=== PATIENT | female | born 1995 | race Caucasian/White ===

== ENCOUNTER 2020-07-01 23:10 | Emergency (ER) | payer MEDICAID, SELFPAY ==
[2020-07-01 23:11] VITALS: BP 154/101; PULSE 86; RESP 20; TEMP 36.3; O2SAT 98; BMI 49.6
--- NOTE | 2020-07-01 23:24 | EKG12_ITS ---
Test Reason : DYSRHYTHMIA Blood Pressure : / mmHG Vent. Rate : 090 BPM Atrial Rate : 090 BPM P-R Int : 144 ms QRS Dur : 092 ms QT Int : 368 ms P-R-T Axes : 052 061 056 degrees QTc Int : 450 ms Normal sinus rhythm Normal ECG Confirmed by KAIT NICOLE, RADHA ([id number]), supervising editor news reel CHANDAN URIBE ([id number]) on 07/03/2020 11:31:07 AM Referred By: ALPHONSE Confirmed By:RADHA CARBALLO MD
--- NOTE | 2020-07-01 23:25 | ED.VIS.GEN ---
History of Present Illness Chief Complaint: Palpitations Informant: Patient Onset: Today Context: Sudden Onset Timing: Continuous Current Severity: Moderate Maximum Severity: Moderate Narrative: Patient is a 24-year-old female who is otherwise healthy that presents to the emergency department with palpitations and near syncope. Patient states she was in her normal state of health. She states she began to feel like her heart was racing. She states she then began to feel like it was missing beats and she felt like she was going to pass out. She became nauseated and had tunnel vision. She never lost consciousness. She states since then, she just feels like her heart has been racing. She denies cough. She denies shortness of breath. She states she does feel mildly anxious. She states this happened about 4 months ago and she actually did pass out. She states she presented to the emergency department and was told that she was dehydrated. She did not have to follow-up with cardiology. Prior similar symptoms: Yes Recent Illness/Hospitalization: No Past Medical History - Allergies and Home Meds Allergies/Adverse Reactions: Allergies No Known Allergies Allergy (Verified 07/01/20 23:11) Primary Care Physician: Arsen Lyman MD [STAFF PHYSICIAN] - Prior records reviewed: Yes Past Medical History: None Surgical History: noncontributory Review of Systems General: Denies: Chills, Fever, Sweats Eyes: Denies: Visual changes - bilaterally, Diplopia ENT: Denies: Rhinorrhea, Sore throat Cardiovascular: Reports: Chest pain, Palpitations, Heart racing Respiratory: Denies: Dyspnea, Cough, Dyspnea on exertion Gastrointestinal: Denies: Abdominal pain, Nausea, Vomiting, Diarrhea, Melena, Hematochezia Genitourinary: Denies: Dysuria, Hematuria, Frequency Musculoskeletal: Denies: Back pain, Extremity Pain Skin: Denies: Rash, Wounds Neurological: Denies: Headache, Weakness, Numbness Physical Exam Vital Signs/Narrative: Vital Signs Temp Pulse Resp BP Pulse Ox 07/01/20 23:11 97.4 F L 86 20 H 154/101 H 98 Inital Vital Signs reviewed: Yes General: Well nourished, Well developed, No Acute Distress Head: Normocephalic, Atraumatic Eyes: Perrl, EOMI ENT: Moist mucous membranes, No rhinorrhea Neck: Supple, Nontender Cardiovascular: Regular rate, Regular rhythm, No murmurs Respiratory: No distress, CTA bilaterally, Chest nontender Abdomen: Soft, Nontender, Nondistended, Normal bowel sounds Back: Nontender, Normal Inspection Extremities: Nontender, No edema Skin: Normal color, No rash Neurological: Alert, Oriented x3, Cranial nerves II-XII grossly intact, Normal Strength, Normal Sensation Psychological: Normal affect, Normal Mood Diagnostic/Tx/Re-eval Clinical Impression(s) from Imaging Studies Chest X-Ray 07/01/20 23:50 IMPRESSION: Normal x-ray examination of the chest. Electronically Signed: Billie Orantes MD at 0:20 EDT Tel , Service support , Abnormal Lab Results 07/01/20 07/01/20 22:35 22:35 WBC 11.6 H RBC 4.58 Hgb 13.7 Hct 42.4 MCV 92.6 MCH 29.9 MCHC 32.3 RDW Std Deviation 44.0 H RDW Coeff of Halie 13.0 Plt Count 532 H MPV 9.1 Immature Gran % (Auto) 0.400 Neut % (Auto) 56.1 Lymph % (Auto) 31.0 [place] % (Auto) 8.1 Eos % (Auto) 3.5 Baso % (Auto) 0.9 Absolute Neuts (auto) 6.5 Absolute Lymphs (auto) 3.58 Nucleated RBC % 0 Sodium 139 Potassium 3.5 Chloride 111 H Carbon Dioxide 23.0 Anion Gap 5 BUN 13 Creatinine 0.90 Estim Creat Clear Calc 81.80 Est GFR (MDRD) Af Amer 97 Est GFR (MDRD) Non-Af 80 BUN/Creatinine Ratio 14.4 Glucose 102 Calcium 8.5 Magnesium 2.0 Troponin I < 0.015 - Rhythm Strip Rhythm Strip: Sinus Rhythm Rate: 80 Ectopy: None - EKG Initial EKG Interpretation: Sinus Rhythm, No Acute Injury Pattern Prior: No Prior - Medical Decision Making The patient presents after vasovagal near syncopal episode. EKG was obtained on arrival. Was sinus rhythm without acute ischemic change. Patient was kept on a monitor. There is no dysrhythmia. Metabolic work-up was pursued and was unremarkable. Chest x-ray shows no evidence of enlarged cardiac silhouette, volume overload, or other dangerous process. Patient was observed for greater than an hour with no further symptoms. This does seem consistent with vasovagal near syncope. The patient had rapid change in position prior to the symptoms. However, she has had this twice within the past year I do feel that outpatient cardiology follow-up will be appropriate. The patient is comfortable with this plan of care. Impression 1. Vasovagal near syncope ED Disposition - Plan for ED Patient: Instructions: ED Near Syncope Vasovagal Referrals: Arsen Lyman MD [STAFF PHYSICIAN] -
[2020-07-01 23:48] VITALS: O2SAT 98
[2020-07-01 23:48] LABS: Absolute Lymphocyte Count 3.58 X10^3/uL (0.83-4.51); Absolute Neutrophil Count 6.5 X10^3/uL (2.0-7.7); Basophil% 0.9 % (0-1); Eosinophils% 3.5 % (0-5); Hematocrit 42.4 % (37-47); Hemoglobin 13.7 g/dL (12.0-15.0); Lymphocyte # 3.58 X10^3/ul (4.0); Mean Corp Hgb Conc 32.3 g/dL (32-36); Mean Corpuscular Hgb 29.9 pg (27.0-32.0); Mean Corpuscular Volume 92.6 fL (81-99); Mean Platelet Vol. 9.1 fl (6.2-12.0); Monocyte# 0.94 X10^3/uL; Monocyte% 8.1 % (0-10); NRBC Flagged by Analyzer 0 % (0-5); Neutrophil # 6.49 X10^3/uL (2.7-7.7); Neutrophil % 56.1 % (47-70); Platelet Count 532 K/mm3 (150-450); Red Blood Count 4.58 M/mm3 (4.2-5.4); White Blood Count 11.6 K/mm3 (4.4-11.0)
--- NOTE | 2020-07-01 23:50 | RAD_ITS ---
STUDY: X-RAY CHEST REASON FOR EXAM: Female, 24 years old. 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 NOW FEELING SOB AND ANXIOUS. TECHNIQUE: Single AP portable view of the chest. COMPARISON: None. FINDINGS: The lungs are clear and expanded. There is no demonstrated pleural abnormality. Normal size heart. Normal mediastinum and lalo. Normal visualized pulmonary arteries. Normal visualized aortic arch and descending thoracic aorta. Normal visualized thoracic spine. Normal visualized ribs, clavicles, and shoulders. There is no demonstrated abnormality of the visualized soft tissue structures of the upper abdomen. RAD/Chest 1 View (Portable) IMPRESSION: Normal x-ray examination of the chest. Electronically Signed: Billie Orantes MD at 0:20 EDT Tel , Service support ,
[2020-07-02 00:01] LABS: Anion Gap 5 (5-15); BUN 13 mg/dL (7-18); BUN/Creat Ratio 14.4 RATIO (10-20); Calcium,Total 8.5 mg/dL (8.5-10.1); Chloride 111 mmol/L (98-107); EST Glomerular Filtration Rate 80 mL/min (>60); Est Glom Filt Rate - Afr Amer 97 mL/min (>60); Glucose 102 mg/dL (74-106); Potassium 3.5 mmol/L (3.5-5.1); Sodium Level 139 mmol/L (136-145)
[2020-07-02 00:36] VITALS: BP 122/74; PULSE 84; RESP 16; O2SAT 98
== END 2020-07-02 00:37 | disposition home or self-care (01) ==
LOC: ED 07-02 00:01
PROVIDERS: Emergency Provider Emergency Medicine
DX: R55 Syncope and collapse (principal)
CPT/HCPCS: 71045; 80048; 83735; 84484; 85025; 93005; 99284

== ENCOUNTER 2020-11-08 16:39 | Emergency (ER) | payer SELFPAY ==
[2020-11-08 16:40] VITALS: BP 157/94; PULSE 92; RESP 17; TEMP 36.1; O2SAT 97; BMI 51.0
--- NOTE | 2020-11-08 17:02 | EKG12_ITS ---
Test Reason : SOB Blood Pressure : / mmHG Vent. Rate : 084 BPM Atrial Rate : 084 BPM P-R Int : 144 ms QRS Dur : 088 ms QT Int : 378 ms P-R-T Axes : 059 043 055 degrees QTc Int : 446 ms Normal sinus rhythm with sinus arrhythmia Low Voltage QRS (Limb Leads) Confirmed by TAE NICOLE, BRET ([id number]), editor department KANG PETTIT ([id number]) on 11/09/2020 11:20:56 AM Referred By: AZALIA Confirmed By:BRET STRONG MD
--- NOTE | 2020-11-08 17:05 | ED.VISSUMM ---
- ER Visit Summary Date of Service: 11/08/20 Chief Complaint: Shortness of breath History of Present Illness: The patient is a 25 F who presents with shortness of breath that became worse today. Patient states she has been having some intermittent shortness of breath over the past few days. Patient states this has been constant for the past 2 hours today. Patient states her breathing feels heavy. Patient also admits to some heaviness in her chest and tightness in her left arm. Patient states she also had some lightheadedness earlier today. Patient states it is worse with anxiety. Patient states nothing seems to help. Patient denies any cough. Patient denies any sick contacts. Patient denies any fevers or chills. Patient denies any loss of taste or smell. Patient denies any rhinorrhea or sore throat. Patient denies any PE or cardiac risk factors. Physical Examination: Vital signs are stable. Patient is afebrile. Patient is in no acute distress. Oral mucosa is pink and moist. Neck is supple. Trachea is midline. There is no JVD. Heart was regular rate and rhythm. Lungs are clear and equal bilaterally. Abdomen is soft. Bowel sounds are normal. There is no tenderness. There is no rebound or guarding noted. Cranial nerves II through XII are intact. There are no focal motor or sensory deficits noted. Extremities are intact. There is no calf tenderness or edema. Test Results: EKG was obtained. On my interpretation, there is normal sinus rhythm with a rate of 84. There are no acute ST or T wave changes. This is unchanged compared to previous EKG dated 07/01/2020. CBC and comprehensive metabolic profile were obtained were within normal limits. Troponin was normal. Lactate was normal. Portable 1 view chest x-ray was obtained. On my interpretation, lung walker are clear. There is normal cardiac silhouette. Bony thorax is normal. There is no acute process noted. Radiologist also interpreted the x-ray and agrees. COVID-19 rapid antigen was obtained and was negative. Emergency Department Course and Treatment: Patient was given albuterol inhaler here. Patient felt better on reevaluation. Patient was instructed to continue her inhaler as needed. Patient was instructed to follow-up with her primary care physician in 5 to 7 days. Patient understood and was agreeable with the plan. All questions were answered. Disposition: Discharge home Impression: Dyspnea This note was generated with [employer], a Division of [employer] dictation software. It may contain incorrect words, spelling, and punctuation that were not noted in review of the chart prior to signing ED Disposition - Plan for ED Patient: Disposition: Home or Assisted Living Diagnosis: Dyspnea Instructions: ED Dyspnea Referrals: So Camara MD [STAFF PHYSICIAN] - 5-7 Days
[2020-11-08 17:28] VITALS: BP 138/87; PULSE 95; RESP 19; O2SAT 96
[2020-11-08 17:46] LABS: Absolute Lymphocyte Count 2.01 X10^3/uL (0.83-4.51); Absolute Neutrophil Count 6.7 X10^3/uL (2.0-7.7); Basophil# 0.08 X10^3/uL; Basophil% 0.8 % (0-1); Eosinophil# 0.28 X10^3/uL; Eosinophils% 2.8 % (0-5); Hematocrit 39.8 % (37-47); Hemoglobin 13.4 g/dL (12.0-15.0); Lymphocyte # 2.01 X10^3/ul (4.0); Lymphocyte % 20.4 % (19-41); Mean Corp Hgb Conc 33.7 g/dL (32-36); Mean Corpuscular Volume 89.2 fL (81-99); Mean Platelet Vol. 8.9 fl (6.2-12.0); Monocyte# 0.74 X10^3/uL; Monocyte% 7.5 % (0-10); NRBC Flagged by Analyzer 0 % (0-5); Neutrophil % 68.1 % (47-70); Platelet Count 558 K/mm3 (150-450); RBC Distribution Width CV 12.7 % (11.6-14.6); RBC Distribution Width SD 41.5 fl (35.1-43.9); Red Blood Count 4.46 M/mm3 (4.2-5.4); White Blood Count 9.9 K/mm3 (4.4-11.0)
--- NOTE | 2020-11-08 18:04 | RAD_ITS ---
STUDY: X-RAY CHEST REASON FOR EXAM: Female, 25 years old. INTERMITTENT SOB STARTING SEVERAL DAYS AGO, REPORTS WORSE WITH ANXIETY. PT ALSO REPORTS HER LEFT ARM BECOMING TIGHT. TECHNIQUE: Frontal view COMPARISON: 07/01/2020 FINDINGS: The lungs are clear and expanded. There is no demonstrated pleural abnormality. Normal size heart. Normal mediastinum and lalo. Normal visualized pulmonary arteries. Normal visualized aortic arch and descending thoracic aorta. Normal visualized thoracic spine. Normal visualized ribs, clavicles, and shoulders. There is no demonstrated abnormality of the visualized soft tissue structures of the upper abdomen. RAD/Chest 1 View (Portable) IMPRESSION: Normal x-ray examination of the chest. Electronically Signed: Pavel Cabezas DO at 18:28 EST Tel [phone], Service support ,
[2020-11-08 18:08] LABS: ALB/GLOB Ratio 0.9 RATIO (0.9-2.4); AST(SGOT) 14 U/L (15-37); Alanine Aminotransfer ALT/SGPT 32 U/L (13-56); Albumin, Serum 3.5 g/dL (3.2-5.0); Alkaline Phosphatase 59 U/L (45-117); Anion Gap 6 (5-15); BUN 15 mg/dL (7-18); BUN/Creat Ratio 16.2 RATIO (10-20); Calcium,Total 8.9 mg/dL (8.5-10.1); Chloride 108 mmol/L (98-107); Creatinine, Serum 0.93 mg/dL (0.55-1.02); EST Glomerular Filtration Rate 77 mL/min (>60); Est Glom Filt Rate - Afr Amer 93 mL/min (>60); Estimated Creatinine Clearance 81.76 ml/min; Globulin 3.9 g/dL (2.2-4.2); Glucose 105 mg/dL (74-106); Potassium 3.8 mmol/L (3.5-5.1); Protein, Total 7.4 g/dL (6.4-8.2); Sodium Level 140 mmol/L (136-145)
[2020-11-08 18:54] LABS: Lactic Acid 1.4 mmol/L (0.4-1.9)
[2020-11-08 19:00] VITALS: BP 138/83; PULSE 85; RESP 13; O2SAT 98
[2020-11-08 19:34] VITALS: BP 142/88; PULSE 94; RESP 16; O2SAT 99
== END 2020-11-08 19:34 | disposition home or self-care (01) ==
PROVIDERS: Emergency Provider Emergency Medicine
DX: R06.00 Dyspnea, unspecified (principal)
CPT/HCPCS: 71045; 80053; 83605; 84484; 85025; 87426; 93005; 99284; A4216

== ENCOUNTER 2022-08-22 10:58 | Emergency (ER) | payer SELFPAY ==
[2022-08-22 10:59] VITALS: BP 146/107; PULSE 90; RESP 18; TEMP 36.6; O2SAT 97; BMI 54.1
[2022-08-22 12:34] VITALS: RESP 16
--- NOTE | 2022-08-22 12:52 | EDS_ITS ---
HPI History of Present Illness Chief Complaint: Nosebleed Informant: patient Narrative Narrative: Presents with right-sided epistaxis over the last 24 hours 5 different episodes. No anticoagulants. Currently cold last few days that he is up. Denies digital manipulation. She states she would remove a clot and would rebleed. No history of similar. Diagnosis Home COVID 4 days ago for the second time. Denies any significant symptoms. No dyspnea. No headache. Has not seen ENT in the past. She states she was changing her baby's diaper when it occurred initially. Prior similar symptoms: No PFSH PFSH Home Medications NK 11/08/20 [History Last Taken Unknown] Allergy/AdvReac Type Severity Reaction Status Date / Time No Known Allergies Allergy Verified 08/22/22 11:01 Social History Smoking Status: Never smoker ROS ROS ED Constitutional Constitutional ED: Denies chills, fever(s) or sweats Eyes Eyes: Denies change in vision ENT ENT ED: Reports other Details: Right nasal epistaxis ; Denies dysphagia or sore throat Cardiovascular Cardiovascular: Denies chest pain, leg edema, palpitations or racing heartbeat Respiratory/Chest Respiratory/Chest: Denies cough, dyspnea or dyspnea on exertion Gastrointestinal Gastrointestinal: Denies abdominal pain, diarrhea, nausea or vomiting Genitourinary Genitourinary ED: Denies dysuria, hematuria or urinary frequency Musculoskeletal Musculoskeletal: Denies back pain, extremity pain or neck pain Integumentary Denies rash or wounds Neurologic Neurologic: Denies headache(s), paresthesias or weakness EXAM Physical Exam Const Vital Signs: 08/22/22 10:59 08/22/22 12:34 Temperature 98 F Temperature Source Temporal Pulse Rate 90 Respiratory Rate 18 16 Blood Pressure 146/107 H Blood Pressure Mean 120 Pulse Ox 97 Oxygen Delivery Method Room Air Positive well nourished and well developed General Appearance ED: well developed and NAD HEENT Reports moist mucous membranes HEENT Narrative: Dried blood was noted in right nare the removed and noted mild recurrent ble eding from a small nasal polyp anterior aspect of the septum. No ulcerations. No posterior pharyngeal active bleeding. normocephalic and atraumatic Eyes PERRL, EOMs intact bilaterally and conjunctivae normal General Eye ED: Yes normal appearance of both eyes Neck no lymphadenopathy and supple General: Negative for tenderness Chest Wall Chest: Negative for tenderness Resp normal respiratory effort and normal air movement Effort and Inspection: symmetric chest movement; Negative for respiratory distress Cardio regular rate, regular rhythm and no murmurs Peripheral Pulses: pulses 2+ throughout GI normal to inspection, nondistended, normoactive bowel sounds and non-tender Palpation: Negative for guarding or rebound tenderness present Back/Spine no CVA tenderness and no thoracic nor lumbar tenderness Extremity normal to inspection General Extremety ED: Negative for edema or tenderness General Extremity: Negative for edema Neuro oriented x3 and no sensory deficits noted Sensorium / Orientation: awake and alert Skin no rashes or lesions noted and no wounds MDM MDM MDM Narrative Medical decision making narrative: Patient recurrent bleeding polyp in the nasal septum. Controlled with pressure, however with her concerns for rebleeding discussed the nasal packing for which she agreed. 3.5 cm Merocel packing was placed with no complications. Bleeding controlled. Due to the nasal polyp, she is given follow with ENT to be evaluated as an outpatient. COVID positive outpatient 4 days ago with no significant symptoms. Pulse ox 97% on room air. Return precautions. All questions were answered. Discharge Plan Triage Chief Complaint: Nosebleed ED Provider: Marek Blankenship Dx/Rx/DC Orders Clinical Impression: Right nasal polyps, Epistaxis, COVID-19 virus infection Instructions: Understanding Nasal Polyps, ED Epistaxis (Adult) Prescriptions: No Action NK Primary Care Provider: Care Physician,No Primary Referrals: Esteban Millan MD [Med Staff - Active Staff] - 3-5 Days Care Physician,No Primary [Primary Care Provider] - Activity Restrictions/Additional Instructions: Small right anterior septal nasal polyp noted that was bleeding. 3.5 cm Merocel packing placed. Follow-up with ENT in 3 days. Return if any worsening symptoms. Disposition Disposition: Home, Self Care Discharge Date/Time: 08/22/22 12:34
== END 2022-08-22 12:34 | disposition home or self-care (01) ==
PROVIDERS: Emergency Provider Emergency Medicine; Visit Provider Emergency Medicine
DX: U07.1 COVID-19 (principal); R04.0 Epistaxis; J33.9 Nasal polyp, unspecified
CPT/HCPCS: 30901; 99282

== ENCOUNTER → 2023-03-03 | Outpatient (CLI) | payer BC, SELFPAY | END | disposition home or self-care (01) | LOC: MFPLAB 15:49 | PROVIDERS: PCP Family Medicine; Visit Provider Family Medicine | DX: R63.5 Abnormal weight gain (principal); L68.9 Hypertrichosis, unspecified; N92.6 Irregular menstruation, unspecified ==

== ENCOUNTER → 2023-03-04 | Outpatient (CLI) | payer BC, SELFPAY ==
[2023-03-04 11:02] LABS: Absolute Lymphocyte Count 2.15 X10^3/uL (0.83-4.51); Absolute Neutrophil Count 5.9 X10^3/uL (2.0-7.7); Basophil# 0.07 X10^3/uL; Basophil% 0.8 % (0-1); Eosinophil# 0.24 X10^3/uL; Eosinophils% 2.7 % (0-5); Hematocrit 43.4 % (37-47); Hemoglobin 14.2 g/dL (12.0-15.0); Lymphocyte # 2.15 X10^3/ul (0.83-4.51); Lymphocyte % 23.9 % (19-41); Mean Corp Hgb Conc 32.7 g/dL (32-36); Mean Corpuscular Hgb 29.3 pg (27.0-32.0); Mean Corpuscular Volume 89.5 fL (81-99); Mean Platelet Vol. 9.3 fl (6.2-12.0); Monocyte# 0.65 X10^3/uL; Monocyte% 7.2 % (0-10); NRBC Flagged by Analyzer 0 % (0-5); Neutrophil # 5.87 X10^3/uL (2.7-7.7); Neutrophil % 65.1 % (47-70); Platelet Count 550 K/mm3 (150-450); RBC Distribution Width CV 13.2 % (11.6-14.6); RBC Distribution Width SD 42.9 fl (35.1-43.9); Red Blood Count 4.85 M/mm3 (4.2-5.4)
[2023-03-04 11:16] LABS: Hemoglobin A1c 5.3 % (3.8-5.6)
[2023-03-04 11:20] LABS: ALB/GLOB Ratio 0.8 RATIO (0.9-2.4); AST(SGOT) 16 U/L (15-37); Alanine Aminotransfer ALT/SGPT 40 U/L (13-56); Albumin, Serum 3.5 g/dL (3.2-5.0); Alkaline Phosphatase 57 U/L (45-117); Anion Gap 6 (5-15); BUN 17 mg/dL (7-18); BUN/Creat Ratio 18.8 RATIO (10-20); Calcium,Total 9.2 mg/dL (8.5-10.1); Chloride 105 mmol/L (98-107); Cholesterol 156 mg/dL (200); EST Glomerular Filtration Rate 78 mL/min (>60); Est Glom Filt Rate - Afr Amer 94 mL/min (>60); Globulin 4.3 g/dL (2.2-4.2); Glucose 78 mg/dL (74-106); High Density Lipoprotein 51 mg/dL; Potassium 3.9 mmol/L (3.5-5.1); Prolactin 13.6 ng/mL; Protein, Total 7.8 g/dL (6.4-8.2); Sodium Level 138 mmol/L (136-145); Thyroid Stim Hormone (TSH) 4.55 uIU/mL (0.358-3.74); Triglycerides 87 mg/dL; Very Low Density Lipoprotein 17 mg/dL (5-40)
== END | disposition home or self-care (01) ==
LOC: MFPLAB 08:04
PROVIDERS: PCP Family Medicine; Visit Provider Family Medicine
DX: R63.5 Abnormal weight gain (principal); N92.6 Irregular menstruation, unspecified; L68.9 Hypertrichosis, unspecified
CPT/HCPCS: 36415; 80053; 80061; 82157; 82627; 83036; 84146; 84403; 84443; 85025; 82626

== ENCOUNTER 2023-12-31 14:09 | Emergency (ER) | payer SELFPAY ==
[2023-12-31 14:10] VITALS: BP 175/110; PULSE 91; RESP 18; TEMP 36.4; O2SAT 96; BMI 59.2
--- NOTE | 2023-12-31 14:43 | EDS_ITS ---
HPI <GUILLERMINA Castorena - Last Filed: 12/31/23 15:56> History of Present Illness Chief Complaint: Abd Pain Narrative Narrative: 28-year-old female states 4 hours ago she developed abdominal pain and has had 5 episodes of loose nonbloody stool. She has nausea but no vomiting. No fever or chills. Normal urination. She states this morning she had eggs and toast. She is on thyroid medication. Denies medication changes or travel or new foods. No abdominal surgical history. PFSH <GUILLERMINA Castorena - Last Filed: 12/31/23 15:56> [facility] Medical History (Updated 12/31/23 @ 16:[address] Addison Hills MD) Abdominal wall strain Home Medications dicyclomine 20 mg tablet 20 mg PO BID 5 days #10 tabs 12/31/23 [Rx Last Taken Unknown] loperamide 2 mg capsule 2 mg PO Q6H PRN loose stool 5 days #20 caps 12/31/23 [Rx Last Taken Unknown] Allergy/AdvReac Type Severity Reaction Status Date / Time No Known Allergies Allergy Verified 12/31/23 14:10 Social History Smoking Status: Never smoker ROS <GUILLERMINA Castorena - Last Filed: 12/31/23 15:56> ROS ED ROS Narrative Constitutional: Negative for fever, chills, malaise. CVS: Negative for chest pain. Respiratory: Negative for shortness of breath. GI: Positive for abdominal pain, nausea, diarrhea. Negative for constipation, melena, hematochezia. : Negative for dysuria, hematuria or frequency. EXAM <GUILLERMINA Castorena - Last Filed: 12/31/23 15:56> Physical Exam Narrative Exam Narrative: CONST: Patient sitting in no acute distress. EYES: Normal inspection. NECK: Normal inspection. RESP: No respiratory distress, CTAB. CVS: Regular rate and rhythm, no murmur, no gallop. ABD: Soft and nontender, no guarding or rebound, nondistended, no hepatosplenomegaly. Normal bowel sounds x 4. SKIN: Color normal, no rash, warm, dry, intact. EXTREMITIES: Normal appearance, no pedal edema. NEURO: Oriented x4. PSYCH: Normal affect. Const Vital Signs: 12/31/23 14:10 12/31/23 15:59 Temperature 97.5 F L 98.4 F Temperature Source Temporal Pulse Rate 91 80 Respiratory Rate 18 16 Blood Pressure 175/110 H 147/70 H Blood Pressure Mean 131 95 Pulse Ox 96 100 Oxygen Delivery Method Room Air <Dr. Addison Hills MD - Last Filed: 12/31/23 16:08> Physical Exam Const Vital Signs: 12/31/23 14:10 12/31/23 15:59 Temperature 97.5 F L 98.4 F Temperature Source Temporal Pulse Rate 91 80 Respiratory Rate 18 16 Blood Pressure 175/110 H 147/70 H Blood Pressure Mean 131 95 Pulse Ox 96 100 Oxygen Delivery Method Room Air MDM <GUILLERMINA Castorena - Last Filed: 12/31/23 15:56> [facility] MDM Narrative Medical decision making narrative: Patient has acute abdominal cramping pain and diarrhea over the last 4 hours. She was worried this is her gallbladder or appendix. She has no fever or chills. Pain comes in waves and is associated with having a loose bowel movement. No melena or hematochezia. Her abdomen is soft, nontender, nond istended with normal bowel sounds. I discussed based on her history and exam I am not concerned that this is her gallbladder or appendix, rather more likely viral diarrhea and colonic pain. After treatment with Bentyl, Zofran and Imodium she feels improved. I discussed following a bland diet and prescribed Bentyl and Imodium for home. I discussed symptoms that would warrant return for reevaluation she was comfortable with this plan and discharged in stable condition. I have personally performed a face to face assessment of the patient and have reviewed the ALEXANDER Note. I performed a substantive portion of the visit including all aspects of the following. My pacheco findings include: History is remarkable for acute sharp pain that was in the periumbilical area radiating upwards. She states the pain is generalized. She has nausea without vomiting. Has had for 5 episodes of diarrhea. Not any blood or mucus. No fever, chills night sweats. For lunch she had 1 egg and an apple. She denies urologic symptoms. She has irregular menses. She states she can go months without having a menstrual cycle. She denies respiratory or cardiac symptoms. Exam is blood pressure is elevated. She has had elevated blood pressures on prior ER visits. Patient's BMI is 59. Lungs are clear to auscultation. Breath sounds are symmetric. Heart is regular. Rate is normal. There is no murmur, gallop or rub. Patient has tenderness in the epigastric area. There is no tympany to percussion. Bowel sounds are slightly increased. There is no guarding or peritoneal findings. There is no CVA tenderness. Medical Decision Making with several episodes diarrhea will treat her pain with Bentyl and Zofran for her nausea. Will also prescribe Imodium for her diarrhea. Other additions or changes: [None] <Dr. Addison Hills MD - Last Filed: 12/31/23 16:08> [facility] MDM Narrative Medical decision making narrative: Patient has acute abdominal cramping pain and diarrhea over the last 4 hours. She was worried this is her gallbladder or appendix. She has no fever or chills. Pain comes in waves and is associated with having a loose bowel movement. No melena or hematochezia. Her abdomen is soft, nontender, nondistended with normal bowel sounds. I discussed based on her history and exam I am not concerned that this is her gallbladder or appendix, rather more likely viral diarrhea and colonic pain. After treatment with Bentyl, Zofran and Imodium she feels improved. I discussed following a bland diet and prescribed Bentyl and Imodium for home. I discussed symptoms that would warrant return for reevaluation she was comfortable with this plan and discharged in stable c ondition. I have personally performed a face to face assessment of the patient and have reviewed the ALEXANDER Note. I performed a substantive portion of the visit including all aspects of the following. My pacheco findings include: History is remarkable for acute sharp pain that was in the periumbilical area radiating upwards. She states the pain is generalized. She has nausea without vomiting. Has had for 5 episodes of diarrhea. Not any blood or mucus. No fever, chills night sweats. For lunch she had 1 egg and an apple. She denies urologic symptoms. She has irregular menses. She states she can go months without having a menstrual cycle. She denies respiratory or cardiac symptoms. Exam is blood pressure is elevated. She has had elevated blood pressures on prior ER visits. Patient's BMI is 59. Lungs are clear to auscultation. Breath sounds are symmetric. Heart is regular. Rate is normal. There is no murmur, gallop or rub. Patient has tenderness in the epigastric area. There is no tympany to percussion. Bowel sounds are slightly increased. There is no guarding or peritoneal findings. There is no CVA tenderness. Medical Decision Making with several episodes diarrhea will treat her pain with Bentyl and Zofran for her nausea. Will also prescribe Imodium for her diarrhea. Other additions or changes: Patient was reassessed at approximately 1555. She reported marked improvement. Plan is to discharge home with appropriate home- going instructions Discharge Plan Triage Chief Complaint: Abd Pain ED Midlevel Provider: Lea Morillo ED Provider: Addison Hills Dx/Rx/DC Orders Clinical Impression: Acute diarrhea, Abdominal pain, Nausea alone, Body mass index 50.0-59.9, adult Instructions: ED Diarrhea, Unknown Cause Prescriptions: New dicyclomine 20 mg tablet 20 mg PO BID 5 Days Qty: 10 0RF loperamide 2 mg capsule 2 mg PO Q6H PRN (Reason: loose stool) 5 Days Qty: 20 0RF Primary Care Provider: So Camara Referrals: So Camara MD [Primary Care Provider] - Activity Restrictions/Additional Instructions: Drink clear fluids and eat bland foods such banana, rice, applesauce and toast etc Disposition Disposition: Home, Self Care Discharge Date/Time: 12/31/23 16:00
[2023-12-31] MEDS: Ondansetron ODT 4 MG Tablet PO (14:46)
[2023-12-31] MEDS: Dicyclomine 10 MG Capsule 20 MG PO (14:46)
[2023-12-31] MEDS: Loperamide 2 MG Capsule 4 MG PO (15:09)
[2023-12-31 15:59] VITALS: BP 147/70; PULSE 80; RESP 16; TEMP 36.9; O2SAT 100
== END 2023-12-31 16:00 | disposition home or self-care (01) ==
PROVIDERS: Emergency Provider Emergency Medicine; PCP Family Medicine; Visit Provider Emergency Medicine
DX: R19.7 Diarrhea, unspecified (principal); R10.9 Unspecified abdominal pain; R11.0 Nausea
CPT/HCPCS: 99283

== ENCOUNTER → 2024-03-08 | Outpatient (CLI) | payer OTHER, SELFPAY ==
[2024-03-08 09:51] LABS: Absolute Lymphocyte Count 2.25 X10^3/uL (0.83-4.51); Basophil# 0.07 X10^3/uL; Basophil% 0.8 % (0-1); Eosinophils% 2.2 % (0-5); Hematocrit 43.6 % (37-47); Lymphocyte # 2.25 X10^3/ul (0.83-4.51); Mean Corp Hgb Conc 32.1 g/dL (32-36); Mean Corpuscular Hgb 28.6 pg (27.0-32.0); Mean Corpuscular Volume 89.2 fL (81-99); Mean Platelet Vol. 9.2 fl (6.2-12.0); Monocyte# 0.43 X10^3/uL; Monocyte% 4.8 % (0-10); NRBC Flagged by Analyzer 0 % (0-5); Neutrophil # 5.99 X10^3/uL (2.7-7.7); Neutrophil % 66.6 % (47-70); Platelet Count 546 K/mm3 (150-450); RBC Distribution Width CV 13.4 % (11.6-14.6); RBC Distribution Width SD 43.7 fl (35.1-43.9); Red Blood Count 4.89 M/mm3 (4.2-5.4)
[2024-03-08 10:29] LABS: ALB/GLOB Ratio 0.9 RATIO (0.9-2.4); AST(SGOT) 17 U/L (15-37); Alanine Aminotransfer ALT/SGPT 36 U/L (13-56); Albumin, Serum 3.5 g/dL (3.2-5.0); Alkaline Phosphatase 65 U/L (45-117); Anion Gap 8 (5-15); BUN 17 mg/dL (7-18); Calcium,Total 8.7 mg/dL (8.5-10.1); Chloride 103 mmol/L (98-107); Creatinine, Serum 0.81 mg/dL (0.55-1.02); EST Glomerular Filtration Rate 88 mL/min (>60); Est Glom Filt Rate - Afr Amer 106 mL/min (>60); Globulin 4.1 g/dL (2.2-4.2); Glucose 156 mg/dL (74-106); Potassium 3.6 mmol/L (3.5-5.1); Protein, Total 7.6 g/dL (6.4-8.2); Sodium Level 137 mmol/L (136-145); T4 Total, Thyroxin 11.2 ug/dL (4.8-13.9); Thyroid Stim Hormone (TSH) 4.53 uIU/mL (0.358-3.74)
[2024-03-08 10:41] LABS: Hemoglobin A1c 5.2 % (3.8-5.6)
== END | disposition home or self-care (01) ==
LOC: MTLAB 07:01
PROVIDERS: PCP Family Medicine; Referring Provider Family Medicine; Visit Provider Family Medicine
DX: E03.9 Hypothyroidism, unspecified (principal); N92.6 Irregular menstruation, unspecified
CPT/HCPCS: 36415; 80053; 83036; 84436; 84443; 85025

== ENCOUNTER → 2024-05-12 | Outpatient (CLI) | payer OTHER, SELFPAY | END | disposition home or self-care (01) | PROVIDERS: PCP Family Medicine; Referring Provider Family Medicine; Visit Provider Family Medicine | DX: E03.9 Hypothyroidism, unspecified (principal) | CPT/HCPCS: 36415; 84443 ==

== ENCOUNTER 2024-05-24 11:49 | Emergency (ER) | payer OTHER, SELFPAY ==
[2024-05-24 11:50] VITALS: BP 179/91; PULSE 90; RESP 16; TEMP 36.8; O2SAT 94; BMI 61.4
--- NOTE | 2024-05-24 12:55 | US_ITS ---
INDICATION: ABDOMEN PAIN EXAMINATION: Ultrasound US Abdomen Limited (quadrant) TECHNIQUE: Jara scale and color doppler imaging was performed of the right upper quadrant. COMPARISON: No relevant prior comparison study available FINDINGS: LIVER: The liver is diffusely echogenic consistent with fatty infiltration. There is mild hepatomegaly. No focal hepatic lesion. There is no free fluid. GALLBLADDER AND BILIARY TREE: There are gallstones and sludge within the gallbladder; a client representative gallstone measures up to 1.8 cm. No gallbladder wall thickening or pericholecystic fluid is visualized. The proximal common bile duct measures 4.0 mm, which is within normal limits for the patient''s age. Songraphic Gordon''s sign: Negative. PANCREAS: No focal abnormality is demonstrated in the pancreas. No pancreatic ductal dilatation. RIGHT KIDNEY: The right kidney measures 14.4 cm in length and is within normal limits. US/Gallbladder IMPRESSION: Cholelithiasis and sludge within the gallbladder with no associated gallbladder wall thickening, pericholecystic fluid nor reported sonographic Gordon''s sign. Fatty infiltration of the liver associated with hepatomegaly. Electronically Signed: Nataly Delong MD at 14:38 EDT ,
--- NOTE | 2024-05-24 13:02 | ED.VIS.GI ---
HPI HPI - GI History of Present Illness Chief Complaint: Abd Pain Informant: patient Abdominal Pain/Flank Pain Context: Gradual Onset Timing: Intermittent Location: Epigastric Current Severity: Gone Nausea/Vomiting/Emesis GI Symptom: Positive for Nausea Severity: Mild Diarrhea/Melena/Hematochezia GI Symptom: Negative for Diarrhea, Melena or Hematochezia Associated Symptoms Associated Symptoms: Negative for Dysuria, Frequency, Hematuria or Urgency Narrative Narrative: 28-year-old female complaining of epigastric abdominal pain that woke her up Thursday night while she was asleep. Only lasted 15 seconds. She has had intermittent right upper quadrant abdominal pain after eating recently. Associated nausea. No vomiting or fever. No weight loss. No dysuria. No lower abdominal pain. She does have a history of hypothyroidism. Has never had any abdominal surgeries. Prior similar symptoms: Yes Recent Illness/Hospitalization: No PFSH PFSH Medical History Abdominal wall strain Home Medications ?Medication ?Instructions ?Recorded ?Last Taken ?Type dicyclomine 20 mg tablet 20 mg PO BID 5 days #10 tabs 12/31/23 Unknown Rx loperamide 2 mg capsule 2 mg PO Q6H PRN loose stool 5 days 12/31/23 Unknown Rx #20 caps Allergy/AdvReac Type Severity Reaction Status Date / Time No Known Allergies Allergy Verified 05/24/24 12:06 Social History Smoking Status: Never smoker ROS ROS ED ROS Narrative Intermittent abdominal pain. Postprandial pain and nausea. No fever. No vomiting. No diarrhea. Review of Systems ROS Unobtainable: Denies due to encephalopathy Constitutional Constitutional ED: Denies chills or fever(s) ENT ENT ED: Denies ear pain Cardiovascular Cardiovascular: Denies chest pain Respiratory/Chest Respiratory/Chest: Denies cough or dyspnea Gastrointestinal Gastrointestinal: Reports abdominal pain and nausea; Denies constipation, diarrhea, melena or vomiting Genitourinary Genitourinary ED: Denies dysuria or hematuria Musculoskeletal Musculoskeletal: Denies arthralgias or back pain Integumentary Denies abscess or Abrasions Neurologic Neurologic: Denies headache(s) Psychiatric Psychiatric: Denies anxiety or depression Endocrine Endocrinology: Denies polydipsia or polyphagia Hematologic/Lymphatic Hematologic/Lymphatic: Denies easy bleeding Allergic/Immunologic Allergic/Immunologic ED: Denies mouth swelling EXAM Physical Exam Narrative Exam Narrative: 28-year-old female no acute distress vital signs stable afebrile. Sitting upright in bed. Comfortable. Currently no pain. H EENT exam unremarkable. Neck nontender. Lungs clear to auscultation bilaterally. Heart regular rhythm no murmur. Abdomen soft, nontender nondistended normal bowel sounds without peritoneal signs. Currently no epigastric or right upper quadrant tenderness. No hernia or mass. No distention or obstruction. Moving all 4 extremities. Nontender no edema. She is awake and alert. Answer questions following commands. Const Vital Signs: 05/24/24 11:50 05/24/24 14:14 Temperature 98.2 F Temperature Source Temporal Pulse Rate 90 80 Respiratory Rate 16 16 Blood Pressure 179/91 H 149/90 H Blood Pressure Mean 120 109 Pulse Ox 94 97 Oxygen Delivery Method Room Air Room Air Positive well nourished and well developed; Negative for cachectic, contractures or unkempt General Appearance ED: well developed and NAD; Negative for unkempt, cachectic, contractures or pallor Nutritional Appearance: Negative for cachectic HEENT Reports moist mucous membranes normocephalic and atraumatic; Negative for trauma or tenderness Eyes PERRL and EOMs intact bilaterally General Eye ED: Negative for pale conjunctiva or scleral icterus Neck no lymphadenopathy, supple and no JVD General: Negative for tenderness Lymph Lymphatic: Negative for other Resp normal respiratory effort and clear to auscultation bilaterally Effort and Inspection: Negative for respiratory distress Auscultation: Negative for rales, rhonchi or wheezes Cardio regular rate, regular rhythm, S1 normal heart sound, S2 normal heart sound and no murmurs Rate: Negative for bradycardia or tachycardic Rhythm: Negative for abnormal rhythm GI non-tender, non-distended and no masses Inspection: Negative for abdominal distention Auscultation: normoactive bowel sounds Palpation: soft; Negative for tender, guarding, rigid, hernia, mass, pulsatile mass or rebound tenderness present Back/Spine no CVA tenderness General Back: Negative for CVA tenderness Cervical Spine: Negative for cervical spine tenderness Thoracic Spine / Upper Back: Negative for thoracic spinal tenderness Lumbar Spine / Lower Back: Negative for lumbar spinal tenderness Coccyx: Negative for other Extremity full ROM General Extremety ED: Negative for edema or tenderness General Extremity: Negative for edema Neuro CN's II-XII intact bilaterally and moves all extremities Sensorium / Orientation: alert, oriented to person, oriented to place and oriented to time Motor Exam: strength 5/5 throughout Psych mental status grossly normal and thought process normal Appearance: Negative for unkempt Attitude: No agitated Mood & Affect: Negative for depressed Skin no wounds General Skin Exam: Negative for jaundice or pallor Lesions: no lesions Rashes: no rashes Trauma: Negative for abrasion Nails: Negative for discolored MDM MDM MDM Narrative Medical decision making narrative: 28-year-old female has symptoms consistent with possible gallbladder disease with postprandial pain and nausea. Increased belching. Multiple family members with prior cholecystectomy. Ultrasound and labs are pending. Currently she is pain-free. Repeat exam patient is doing well at 2:36 PM. Abdomen benign. We have gone over her normal test results were awaiting the ultrasound results. Ultrasound gallstones and sludge. Should be discharged to home with outpatient follow-up. She is having no pain. History & Record Review Discussion w/independent historian: Patient Additional record(s) reviewed:: Prior inpatient record, Prior outpatient record and Prior ED visit Lab Data Attestation: I reviewed the patient's lab results. Lab results narrative: CBC normal. White count of 10. H&H 14 and 44. Platelets 550. Electrolytes show gap 5. BUN and creatinine are 19 and 0.76. Glucose 110. Liver enzymes normal. Lipase normal at 31. Serum negative. Ultrasound right upper quadrant shows gallstones and sludge. No cholecystitis. Near Pericholecystic fluid or wall thickening. Labs: Laboratory Results - last 24 hr 05/24/24 12:17 WBC 10.1 RBC 5.05 Hgb 14.3 Hct 44.0 MCV 87.1 MCH 28.3 MCHC 32.5 RDW Std Deviation 42.8 RDW Coeff of Halie 13.5 Plt Count 550 H MPV 9.1 Immature Gran % (Auto) 0.300 Neut % (Auto) 72.0 H Lymph % (Auto) 18.3 L Hancock % (Auto) 6.7 Eos % (Auto) 2.0 Baso % (Auto) 0.7 Absolute Neuts (auto) 7.3 Absolute Lymphs (auto) 1.84 Nucleated RBC % 0 Sodium 138 Potassium 4.0 Chloride 106 Carbon Dioxide 27.0 Anion Gap 5 BUN 19 H Creatinine 0.76 Estim Creat Clear Calc 172.87 Est GFR (MDRD) Af Amer 115 Est GFR (MDRD) Non-Af 95 BUN/Creatinine Ratio 25.1 H Glucose 110 H Calcium 9.2 Total Bilirubin 0.60 AST 21 ALT 38 Alkaline Phosphatase 48 Total Protein 8.0 Albumin 3.7 Globulin 4.3 H Albumin/Globulin Ratio 0.9 Lipase 31 Serum , Qual NEGATIVE Radiography Diagnostic Testing: Clinical Impression(s) from Imaging Studies Gallbladder Ultrasound 05/24/24 12:55 IMPRESSION: Cholelithiasis and sludge within the gallbladder with no associated gallbladder wall thickening, pericholecystic fluid nor reported sonographic Gordon''s sign. Fatty infiltration of the liver associated with hepatomegaly. Electronically Signed: Nataly Delong MD at 14:38 EDT , Discharge Plan Triage Chief Complaint: Abd Pain ED Provider: Tristian Renteria Dx/Rx/DC Orders Clinical Impression: Gallstones, Biliary colic Instructions: ED Gallstones with Biliary Colic Prescriptions: No Action dicyclomine 20 mg tablet 20 mg PO BID 5 Days Qty: 10 0RF loperamide 2 mg capsule 2 mg PO Q6H PRN (Reason: loose stool) 5 Days Qty: 20 0RF Primary Care Provider: So Camara Referrals: Jareth Martin MD [Med Staff - Active Staff] - As soon as possible So Camara MD [Primary Care Provider] - Activity Restrictions/Additional Instructions: Follow-up to general surgeon discussed with him about getting her gallbladder taken out. Your labs are normal. You have gallstones. Avoid fatty and greasy foods. Avoid chocolate and cabbage. Tylenol and/or Motrin for pain. If you get severe pain that you cannot control or intractable vomiting or fever you need to return. Sometimes the gallbladder can get infected or obstructed. Print Language: Armenian Disposition Disposition: Home, Self Care
[2024-05-24 13:03] LABS: Absolute Lymphocyte Count 1.84 X10^3/uL (0.83-4.51); Absolute Neutrophil Count 7.3 X10^3/uL (2.0-7.7); Basophil# 0.07 X10^3/uL; Basophil% 0.7 % (0-1); Hemoglobin 14.3 g/dL (12.0-15.0); Lymphocyte # 1.84 X10^3/ul (0.83-4.51); Lymphocyte % 18.3 % (19-41); Mean Corp Hgb Conc 32.5 g/dL (32-36); Mean Corpuscular Hgb 28.3 pg (27.0-32.0); Mean Corpuscular Volume 87.1 fL (81-99); Mean Platelet Vol. 9.1 fl (6.2-12.0); Monocyte# 0.67 X10^3/uL; Monocyte% 6.7 % (0-10); NRBC Flagged by Analyzer 0 % (0-5); Neutrophil # 7.26 X10^3/uL (2.7-7.7); Platelet Count 550 K/mm3 (150-450); RBC Distribution Width CV 13.5 % (11.6-14.6); RBC Distribution Width SD 42.8 fl (35.1-43.9); Red Blood Count 5.05 M/mm3 (4.2-5.4); White Blood Count 10.1 K/mm3 (4.4-11.0)
[2024-05-24 13:32] LABS: Internal QC Validated? YES +Cl - CLEAR BKGD; Pregnancy, Serum, hCG Quali. NEGATIVE Negative
[2024-05-24 13:38] LABS: ALB/GLOB Ratio 0.9 RATIO (0.9-2.4); AST(SGOT) 21 U/L (15-37); Alanine Aminotransfer ALT/SGPT 38 U/L (13-56); Albumin, Serum 3.7 g/dL (3.2-5.0); Alkaline Phosphatase 48 U/L (45-117); Anion Gap 5 (5-15); BUN 19 mg/dL (7-18); BUN/Creat Ratio 25.1 RATIO (10-20); Calcium,Total 9.2 mg/dL (8.5-10.1); Chloride 106 mmol/L (98-107); Creatinine, Serum 0.76 mg/dL (0.55-1.02); EST Glomerular Filtration Rate 95 mL/min (>60); Est Glom Filt Rate - Afr Amer 115 mL/min (>60); Estimated Creatinine Clearance 172.87 ml/min; Globulin 4.3 g/dL (2.2-4.2); Glucose 110 mg/dL (74-106); Lipase 31 U/L (13-75); Sodium Level 138 mmol/L (136-145)
[2024-05-24 14:14] VITALS: BP 149/90; PULSE 80; RESP 16; O2SAT 97
== END 2024-05-24 15:24 | disposition home or self-care (01) ==
PROVIDERS: Emergency Provider Emergency Medicine; PCP Family Medicine; Visit Provider Emergency Medicine
DX: K80.70 Calculus of gallbladder and bile duct without cholecystitis without obstruction (principal)
CPT/HCPCS: 76705; 80053; 83690; 84703; 85025; 99282; A4216

== ENCOUNTER 2024-06-13 10:07 | Day surgery (SDC) | payer SELFPAY ==
[2024-06-13] VITALS (14 sets, daily range): BP systolic 123–142; BP diastolic 68–97; PULSE 75–94; RESP 16–19; TEMP 36.1–36.9; O2SAT 9–97; BMI 58.6
--- NOTE | 2024-06-13 10:31 | EKG12_ITS ---
Test Reason : PRE-OP Blood Pressure : / mmHG Vent. Rate : 092 BPM Atrial Rate : 092 BPM P-R Int : 156 ms QRS Dur : 090 ms QT Int : 366 ms P-R-T Axes : 058 001 051 degrees QTc Int : 452 ms Normal sinus rhythm Possible Inferior infarct , age undetermined Abnormal ECG When compared with ECG of 08-NOV-2020 16:59, No significant change was found Confirmed by KAIT NICOLE, RADHA ([id number]), city editor OCTAVIA CLINTON ([id number]) on 06/14/2024 6:18:02 AM Referred By: Jareth Martin Confirmed By:RADHA CARBALLO MD
--- NOTE | 2024-06-13 10:50 | RAD_ITS ---
Exam: [place] Cholangiogram and/or Pancreatography OR Comparison: Ultrasound May 24, 2024 with stone filled gallbladder and 4 mm common duct. History: CHANDU W/ IOC Radiation: Fluoroscopic cumulative dose 15.68 mGy. Fluoroscopic time 2.6 seconds. IMAGES: Dynamic fluoroscopic images, 99 in number. FINDINGS: On the last images there is contrast throughout the common duct,, it is tapering distally. Mild contrast in the smooth pancreatic duct. There is contrast extravasation from the cystic duct at the end of the exam which may be due to injection pressure. RAD/Cholangiogram/ O R,Initial IMPRESSION: Dynamic intraprocedural images. No biliary obstruction with contrast injection. Periportal contrast extravasation near the cystic duct on later images. Electronically Signed: Denise Chen MD at 3:03 EDT ,
--- NOTE | 2024-06-13 10:51 | HP.PCM_ITS ---
History and Physical Date of Admission: 06/13/24 Intake Vital Signs 05/24/2411:50 06/02/2412:58 Height 5 ft 5 in 5 ft 6 in Weight: 368 lb BMI 59.3 BP 156/100 H Blood Pressure Location Rt brachial Position Sitting Respiration 18 Pulse 92 Pulse Source Monitor Temp 97.1 F L Temp Source Temporal Pulse Oximetry (%) 96 Oxygen Delivery Method room air Intake Visit Reasons: ER - GALLBLADDER Chief Complaint: Cholelithiasis/Gallbladder sludge Aviation Tactical Readiness Officer Required: No Is patient in pain?: No Allergies No Known Allergies Allergy (Verified 06/02/24 13:06) Medications ?Medication ?Instructions ?Recorded ?Confirmed ?Type loperamide 2 mg capsule 2 mg PO Q6H PRN loose stool 5 days 12/31/23 06/02/24 Rx #20 caps levothyroxine 125 mcg tablet 125 mcg PO DAILY 06/02/24 06/02/24 History (Synthroid) PFSH Medical History (Updated 06/02/24 @ 13:[address] Jareth Martin MD) Nausea Abdominal pain Thyroid disease Anxiety Obesity Gallbladder sludge Cholelithiasis Strain of right ankle and foot Abdominal wall strain Surgical History (Updated 06/02/24 @ 13:04 by Corina Marks) No history of previous surgery Family History Father Diabetes Hypertension High cholesterol Thyroid disorderGrandmother Diabetes High cholesterol Hypertension Thyroid disorderGrandfather Diabetes High cholesterol Hypertension Thyroid disorder Social History (Updated 06/02/24 @ 13:06 by Corina Marks) Smoking Status: Former smoker alcohol intake: never substance use type: does not use HPI HPI HPI: Patient is a 28-year-old female here with gallbladder disease. She was recently in the emergency room and found to have cholelithiasis. She says she has been having attacks for about a year. She said that she recently had an attack and she was in the emergency room and she is currently having pain when she eats. ROS General General: Yes weight change and fatigue; No appetite, colon cancer, breast cancer or weakness HEENT HEENT: No difficulty swallowing, eye injury, eye surgery, swollen glands or hoarseness Endo Endocrine: Yes thyroid disease; No diabetes mellitus, thyroid cancer, Hair loss, heat intolerance or cold intolerance Skin Skin: No rash or changing moles Breast Breast: No left breast lump, right breast lump, nipple discharge, breast pain, abnormal mammogram, abnormal US or breast enlargement Musc Musculoskeletal: No back problems, arthritis, rheumatoid arthritis, gout or joint pain Cardio Cardiovascular: No murmur, pacemaker, heart disease, atrial fibrillation, high blood pressure, heart attack, heart stent, palpitations, shortness of breat with exertion or chest pain Psych Psychiatric: Yes anxiety; No depression or hearing voices Resp Respiratory: No shortness of breath, No sleep apnea, No cough, No COPD, No asthma, No emphysema and No wheezing Gastro Gastrointestinal: Yes abdominal pain, Yes nausea or vomiting, No diarrhea, Yes constipation, No blood in stool, Yes acid reflux, No hemorrhoids, No ulcers, Yes gallbladder problem and No black,tarry stools Hilario Hematologic: No blood thinners, No blood disorders, No bleeding, No anemia and No blood clots Neuro Neurologic: No system reviewed and no additional complaints, except as documented, No as per HPI, No abnormal gait, No abnormal hearing, No abnormal movements, No abnormal speech, No behavioral changes, No burning sensations, No confusion, No convulsions, No disequilibrium, No dizziness, No localized weakness, No frequent falls, No headache(s), No lack of coordination, No loss of vision, No memory loss, No numbness, No other visual disturbances, No radicular pain, No restless legs, No sensory deficit, No syncope, No tingling, No tremor(s), No weakness and No other Exam Const General: cooperative Orientation: alert and oriented x3 HENMT Head: normal to inspection Neck Neck: normal visual inspection and full ROM Chest Chest palpation & inspection: normal inspection of the chest Resp Effort & Inspection: normal respiratory effort Auscultation: clear to auscultation bilaterally Cardio Rate: regular rate Rhythm: regular rhythm GI Inspection: non-distended Palpation: soft and nontender Skin General: no rashes or lesions noted Neuro General: patient alert and patient oriented x3 Extrem General: full ROM Psych Appearance: grossly normal Mental Status: mental status grossly normal Assessment and Plan Assessment and Plan (1) Cholelithiasis: Status: Acute Qualifiers: Cholelithiasis location: gallbladder Cholecystitis presence: with cholecystitis Cholecystitis acuity: chronic Biliary obstruction: without biliary obstruction Qualified Code(s): K80.10 - Calculus of gallbladder with chronic cholecystitis without obstruction Plan: The patient has cholelithiasis and likely has chronic cholecystitis. I discussed laparoscopic cholecystectomy with her. I discussed the procedure in detail with the patient. I discussed the risks, benefits, and alternatives of the procedure. I discussed the risks including but not limited to bleeding, infection, injury to surrounding organs such as the liver, bile duct, bowels. I did discuss the possibility of having to convert to an open procedure as well as the possibility that if any injuries occurred this may necessitate further surgery at a tertiary care center. Jareth Martin MD Pager: [facility] [address] [place] [address], [address] [place] [address] Office: I have examined the patient and the H&P has been reviewed. There are no clinical changes since date of exam.
--- NOTE | 2024-06-13 10:57 | PRE.ANES_ITS ---
ASA Classification* ASA Classification ASA Classification: 2 Assessment & Plan Anesthesia* Anesthesia Assessment Anesthesia Assessment: Discussed sedation and/or anesthesia options, risks, benefits, and alternatives with patient/parents/legal guardian/POA. Questions invited. The patient/parents/legal guardian/POA seems to understand and agrees to proceed with anesthesia plan. Reviewed the physical assessment, medical history, allergy history and patient home medications list prior to surgery/procedure/anesthetic and documented any changes. Performed airway and anesthesia risk assessments. Anesthesia Type Anesthesia Type: General Anesthesia Focused Assessment* Airway Assessment Mouth opens: >3 cm Mallampati Score: II Focused Labs Anesthesia Preop lab: CBC WBC 10.1 K/mm3 (4.4-11.0) 05/24/24 12:17 RBC 5.05 M/mm3 (4.2-5.4) 05/24/24 12:17 Hgb 14.3 g/dL (12.0-15.0) 05/24/24 12:17 Hct 44.0 % (37-47) 05/24/24 12:17 Plt Count 550 K/mm3 (150-450) H 05/24/24 12:17 CHEMISTRY Potassium 4.0 mmol/L (3.5-5.1) 05/24/24 12:17 Sodium 138 mmol/L (136-145) 05/24/24 12:17 Magnesium 2.0 mg/dL (1.6-2.6) 07/01/20 22:35 BUN 19 mg/dL (7-18) H 05/24/24 12:17 Creatinine 0.76 mg/dL (0.55-1.02) 05/24/24 12:17 Glucose 110 mg/dL (74-106) H 05/24/24 12:17 TSH 4.10 uIU/mL (0.358-3.74) H 05/12/24 07:23 COAG Urine Test Pending 06/13/24 10:49 Pre-Assessment Diagnosis/Proposed Procedure Planned Operative Procedure(s): LAPAROSCOPIC CHOLECYSTECTOMY WITH CHOLANGIOGRAMS Anesthesia History Anesthesia History - information assurance specialist: Anesthesia History - information assurance specialist Hx Hospitalization No 06/10/24 12:39 Any Problems With Anesthesia No 06/10/24 12:39 Cholinesterase deficiency No 06/10/24 12:39 You/Your Family Experience No 06/10/24 12:39 fever (hyperthermia) with Relationship Recent Exposure to Contagious Disease Does patient have nerve No 06/10/24 12:39 stimulator Patient instructed to have device shut off --Does patient have Pacemaker or ICD? When Was Last Pacemaker Check QUESTION #4 FULL TEXT: You/Your Family Experience fever (hyperthermia) with Anesthesia Last Oral Intake Last Oral intake: Last Oral Intake NPO since Meds taken in AM with sips of water? Meds patient instructed to take am of surgery PONV PONV - information assurance specialist: PONV - information assurance specialist Female Yes 06/10/24 12:39 HX of Motion Sickness Yes 06/10/24 12:39 HX of N/V After Surgery No 06/10/24 12:39 Non-Smoker Yes 06/10/24 12:39 Duration of Surgery greater Yes 06/10/24 12:39 than 60 minutes Number of Risk Factors 4 06/10/24 12:39 PONV Score Severe Risk 06/10/24 12:39 Height & Weight Height & Weight: Anesthesia: Height & Weight Height 5 ft 6 in 06/02/24 12:58 Respiratory Assessment Respiratory Assessment - information assurance specialist: Respiratory Tract Infection Hx - information assurance specialist Hx Respiratory Tract Infection No 06/10/24 12:39 STOP Sleep Apnea STOP Sleep Apnea - information assurance specialist: STOP Sleep Apnea - information assurance specialist Hx Hypertension No 06/10/24 12:39 Hx Sleep Apnea No 06/10/24 12:39 CPAP BIPAP Do you snore loudly (louder No 06/10/24 12:39 than talking or can be heard Do you often feel tired/ No 06/10/24 12:39 fatigued/ sleepy during daytime? Has anyone observed you stop No 06/10/24 12:39 breathing during sleep? STOP Results Negative 06/10/24 12:39 QUESTION #5 FULL TEXT : Do you snore loudly (louder than talking or can be heard through closed doors)? Tobacco Use History Tobacco Use History - information assurance specialist: Tobacco Use History - information assurance specialist Tobacco Use Smoking Status Former smoker 06/10/24 12:39 Hx Tobacco Use No 06/10/24 12:39 Years Smoking Packs Smoked per Day Smoking Cessation Date was Yes - quit smoking within 15 06/10/24 12:39 within the last 15 years years Hx Smoking Cessation Date Hx Smoking Cessation Counseling Hematologic Medial History Hematologic Hx - information assurance specialist: Hematologic Medical Hx - vessel captain Hx of Blood Transfusion No 06/10/24 12:39 Hx of Transfusion in last 3 No 06/10/24 12:39 Months Date of Last Transfusion (if within last 3 months) Ever experience any problems No 06/10/24 12:39 with transfusion(s)? Specify any problems Hx of Preganancy in last 3 No 06/10/24 12:39 Months Nurse Filling Out Transfusion [email or web address] 06/10/24 12:39 & Questions: Date: 06/10/24 06/10/24 12:39 Time: 12:44 06/10/24 12:39 Patient unable to answer at this time (ie. confused, unrespo /Reproduction History /Reproductive History - information assurance specialist: /Reproductive Hx- information assurance specialist Hx Now Gestational Age (in weeks): EDC: Hx Hx Para Hx Section SAB No 05/24/24 11:50 Active Medications Active Medications: Current Medications Generic Name Dose Route Start Last Admin Trade Name Freq PRN Reason Stop Dose Admin Lactated Ringer's 1,000 mls @ 15 mls/hr 06/13/24 10:15 IV .Q48H SIVAKUMAR Cefotetan Disodium 2 gm/ 100 mls @ 200 mls/hr 06/13/24 10:30 Sodium Chloride IV 06/13/24 10:59 PREOP ONE PFSH Medical History History of irregular heartbeat Wears glasses Fatty liver Gastric reflux History of IBS Nausea Thyroid disease Anxiety Obesity Gallbladder sludge Cholelithiasis Abdominal pain Abdominal wall strain Strain of right ankle and foot Home Medications ?Medication ?Instructions ?Recorded ?Last Taken ?Type loperamide 2 mg capsule 2 mg PO Q6H PRN loose stool 5 days 12/31/23 Unknown Rx #20 caps levothyroxine 125 mcg tablet 125 mcg PO DAILY 06/02/24 Unknown History (Synthroid) Allergy/AdvReac Type Severity Reaction Status Date / Time No Known Allergies Allergy Verified 06/10/24 12:39 Family History Father Diabetes Hypertension High cholesterol Thyroid disorder Grandmother Diabetes High cholesterol Hypertension Thyroid disorder Grandfather Diabetes High cholesterol Hypertension Thyroid disorder Surgical History No history of previous surgery Social History Smoking Status: Former smoker alcohol intake: never substance use type: does not use Review of Systems (Anesthesia) ROS Narrative System reviewed and no additional complaints, except as documented.
[2024-06-13 10:58] LABS: Internal QC Validated? YES +Cl - CLEAR BKGD; Pregnancy, Urine Negative Negative
[2024-06-13 10:59] LABS: Record Kit Lot#,Urine Preg HCG0000772476
[2024-06-13] MEDS: Lactated Ringers 1,000 ML 15 ML IV (11:09)
[2024-06-13] MEDS: Cefotetan 2 GM in 0.9% Normal Saline (100mL MB+) 100 ML IV (11:37)
[2024-06-13 12:07] LABS: Bedside Glucose 98 mg/dL (74-106)
[2024-06-13] MEDS: Bupiv/Epi 0.25% 30 ML Vial (12:30)
--- NOTE | 2024-06-13 12:32 | OP.PCM_ITS ---
Report of Operation Date of Procedure: 06/13/24 Pre-Operative Diagnosis: Biliary colic and cholelithiasis Post-Operative Diagnosis: Same Surgery/Procedure Performed:: Laparoscopic cholecystectomy with cholangiograms Type of Anesthesia: General/Regional Specimen's removed: Gallbladder Description of Procedure: After obtaining informed consent patient was brought back to the operating room. General anesthesia was induced. The abdomen was prepped and draped in usual sterile fashion. A small midline incision was made superior to the umbilicus and deepened to the level of fascia. The fascia was elevated and incised. Next the peritoneum was elevated and incised in the same fashion. Finger sweep was performed and the Platt trocar was placed into the abdomen. The balloon was inflated. The abdomen was inflated to 15 mmHg. Next a camera was introduced into the abdomen and the abdomen was inspected. Next under direct visualization three 5-mm ports were placed one subxiphoid and 2 subcostal. Next the gallbladder was elevated and retracted toward the right shoulder. The peritoneum was stripped from the gallbladder. The infundibulum was located and retracted laterally. Next the triangle of Calot was dissected and the cystic duct and cystic artery were identified. Cholangiograms were performed. The Bermudez clamp was used to clamp across the infundibulum and the catheter needle was inserted into the gallbladder. Under fluoroscopy contrast was instilled into the gallbladder and the common duct, cystic duct as well as proximal hepatic ducts were identified. There was good filling of the duodenum. There were no filling defects noted in the common bile duct. The clamp was removed as well as the needle and the infundibulum was grasped once more. Three hemolock clips were placed across the cystic duct. The cystic duct was then divided leaving 2 clips on the stump. The cystic artery was clipped and divided in the same fashion. The hook cautery was then used to take the gallbladder off of the gallbladder bed. Hemostasis was obtained. Gallbladder fossa was irrigated and no active bleeding or bile leakage was noted. Next the camera was introduced in the subxiphoid port. An Endopouch bag was placed through the umbilical port and the gallbladder was placed into it. The gallbladder was then removed through the umbilical incision. The camera was then reinserted through the umbilical port. The gallbladder fossa was inspected once more and noted to be hemostatic with no leaking bile. The abdomen was suctioned dry. The 5 mm ports were removed under direct visualization. The umbilical port was then removed and the air was removed from the abdomen. An 0 Vicryl suture was used to close the midline fascia using the M-Close device. The umbilical port site was irrigated local anesthetic was administered to all the incisions. All the incisions were closed with interrupted subcuticular 4-0 Monocryl sutures followed by Steri- Strips and dressings. The patient was awoken and taken to PACU in stable condition. Admit VTE Documentation VTE Mechan Device Prophylaxis: SCD's
--- NOTE | 2024-06-13 12:35 | DCINST_ITS ---
Discharge Instructions Procedure Gallbladder Diet Discharge Diet: Light diet - advance as tolerated Activity Discharge Activity: May Not Drive (for 2-3 days or while taking narcotic pain medications.) and - (Do not drive, work heavy equipment or sign legal documents for 24 hours.) May shower in (days): 1 Lifting Restrictions: 20 lbs for 2 weeks Additional Activity Instructions:: Pain medication may cause nausea. You should typically eat light foods as you take your pain medications. Pain medication may also cause constipation. If this is a problem for you, please discuss with your doctor. Alternate ibuprofen and Tylenol for pain control, oxycodone for breakthrough pain Dressing / Incision Call your doctor if your incision/area has: Continuous Slow Oozing, Sudden Increased Bleeding, Increased Pain/ Swelling, Increased Redness and Foul Smelling Discharge Call your doctor if you observe: Fever of 101 or Higher Suture Line Care: Avoid Pulling/Pushing and Avoid Pinching/Bending Remove Dressing in: 2 days Additional Dressing/Incision Instructions:: Leave operative bandaids on for 2 days. When you remove dressing, leave Steri-Strips on for 7 to 10 days Follow Up Care Please Follow Up With: Jareth Martin MD When: Please call to schedule 2 week follow up appointment. [phone] Test Results: Test results from this visit will be discussed in further detail at your follow- up appointment, if applicable. Discharge Plan Admission Attending Provider: Jareth Martin Primary Care Provider: So Camara Instructions Print Language: Slovak Discharge Orders/Prescriptions Prescriptions: New oxycodone 5 mg Tablet 5 - 10 mg PO Q4H PRN PRN (Reason: Pain Score 4-10) 5 Days Qty: 20 0RF No Action levothyroxine [Synthroid] 125 mcg tablet 125 mcg PO DAILY loperamide 2 mg capsule 2 mg PO Q6H PRN (Reason: loose stool) 5 Days Qty: 20 0RF Referrals / Follow Up: So Camara MD [Primary Care Provider] - Disposition Disposition (needs filled in before D/C Order can be placed): Home, Self Care
--- NOTE | 2024-06-13 12:56 | PCM.POST.ANE ---
Anesthesia: Postop Eval I Current Vital Signs Temperature: 98.5 F Pulse Rate: 75 Blood Pressure: 132/97 Respiratory Rate: 16 Pulse Ox: 94 Oxygen Delivery Method: Room Air Assessment Airway patent: Yes Spontaneous unlabored respirations: Yes Mental status: Awake and Calm nausea: No Vomiting: No Anesthesia Complication: No Fluid Hydration Crystalloid volume administer (ml): 1,200 Total IV fluid infused: 1,200 Progress Note Anesthesia document: Postop Eval 1 completed: Yes
--- NOTE | 2024-06-13 13:20 | PCM.POSTANE2 ---
Anesthesia Postop Eval I Sum Postop Eval Completion status Anesthesia document: Postop Eval 1 completed: Yes Anesthesia Postop Eval I Summary Anesthesia Postop Eval I Summary: Anesthesia Postop Eval I: Assessment Summary Airway patent Yes 06/13/24 13:00 Spontaneous unlabored Yes 06/13/24 13:00 respirations Mental status Awake,Calm 06/13/24 13:00 nausea No 06/13/24 13:00 Vomiting No 06/13/24 13:00 Anesthesia Postop Eval I: Fluid Summary Crystalloid volume administer 1,200 06/13/24 13:00 (ml) Colloids volume administered ( ml) Blood Product volume administered (ml) Total IV fluid infused 1,200 06/13/24 13:00 Anesthesia Postop Eval I: Summary Notes Anesthesia Complication No 06/13/24 13:00 Anesthesia Complication Comment: Post-operative progress note Anesthesia: Postop Eval II Evaluation Mental status: Awake Pain Level: 0 nausea: No Vomiting: No
[2024-06-13 13:23] LABS: Bedside Glucose 133 mg/dL (74-106)
[2024-06-13] MEDS: oxyCODONE 5 MG Tablet PO (14:57)
[2024-06-13] MEDS: Acetaminophen 325 MG Tablet 650 MG PO (16:30)
--- NOTE | 2024-06-14 | GALL_PTH ---
PATIENT: JUAN J ELIAS LOC: [facility] – [place] U#:[id number] AGE/SX: 28/F ROOM: RE06/13/[address]: Dr. Jareth Martin MD : 1995 BED: DIS: 06/13/2024 SPEC #: [id number] RECD: 06/14/24 10:22 STATUS: JAYLEN BORJAS #: [id number] CESAR: 06/14/24 00:[address]: Jareth Martin DEPT: SURGICAL PATHOLOGY RECD BY: Praful Kc ENTERED: 06/14/24 10:22 SP TYPE: MIKE SOW DR: Dr. So Camara MD Tissues: Gallbladder, NOS Procedures: Surgery Specimen Level III HEADER OPERATION: Laparoscopic cholecystectomy with IOC PRE-OP DIAGNOSIS: Cholelithiasis TISSUE SUBMITTED: Gallbladder MICROSCOPIC DIAGNOSIS Gallbladder, cholecystectomy: Chronic cholecystitis, cholelithiasis and cholesterolosis. SJ/mr 06/15/2024 MICROSCOPIC DESCRIPTION Slides are reviewed. GROSS DESCRIPTION Received is one container labeled with the patient's name and designated gallbladder. The specimen consists of a gallbladder measuring 8.0 cm in length and up to 3.0 cm in diameter. The external surface is pink-silver, smooth and glistening for the most part. Focally it is granular, hemorrhagic and contains cautery artifact. The gallbladder contains green-yellow mucoid bile and multiple multifaced silver-light yellow-brown stones measuring in aggregate 4.0 x 4.5 x 2.0 cm and 0.3 to 3.0 cm in greatest dimension. The mucosa is bile-stained and without any mass lesions. The gallbladder wall measures up to 0.5 cm in thickness. Increased amount of subserosal fat is noted, focally. The mucosa also shows several yellowish streaks consistent with cholesterolosis. Lining Mechanic sections from the gallbladder and the cystic duct are submitted in one cassette. / SJ: 06/14/2024 TC:3 CPT: 65003
== END 2024-06-13 17:29 | disposition home or self-care (01) ==
LOC: SDC 10:08 → AC 10:10
PROVIDERS: Anesthesiology; PCP Family Medicine; Referring Provider Surgery; Visit Provider Surgery
PROC: (CPT 47610; principal; 2024-06-13 11:30)
DX: K80.10 Calculus of gallbladder with chronic cholecystitis without obstruction (principal); Z68.43 Body mass index [BMI] 50.0-59.9, adult; E66.9 Obesity, unspecified; E07.9 Disorder of thyroid, unspecified; Z79.899 Other long term (current) drug therapy; Z87.891 Personal history of nicotine dependence
CPT/HCPCS: 47563; 00790; 74300; 76000; 81025; 82962; 88304; 93005; J7120; J2405

== ENCOUNTER 2024-06-17 21:57 | Emergency (ER) | payer SELFPAY ==
[2024-06-17 21:58] VITALS: BP 169/96; PULSE 93; RESP 16; TEMP 36.3; O2SAT 99; BMI 57.8
[2024-06-17 22:34] LABS: Bedside Glucose 102 mg/dL (74-106)
--- NOTE | 2024-06-17 22:49 | US_ITS ---
INDICATION: pain in left leg EXAMINATION: Ultrasound US Venous Duplex LE Unilat / Limited TECHNIQUE: Garcia scale, pulse wave, and color flow Doppler imaging was performed of the lower extremity venous system. The bilateral greater saphenous, common femoral, femoral, and popliteal veins were interrogated. COMPARISON: No relevant prior comparison study available FINDINGS: There is normal compression, augmentation, and signal throughout the visualized deep lower extremity veins. Posterior tibial and peroneal veins are not adequately visualized due to body habitus. No mass or fluid collection. US/Venous Duplex Imag/Limited/Uni IMPRESSION: No sonographic evidence of deep venous thrombosis. Electronically Signed: Lc Garcia MD at 0:24 EDT ,
--- NOTE | 2024-06-17 23:13 | EX.ED.DYSGE1 ---
HPI History of Present Illness Chief Complaint: Lower Extremity Injury Informant: patient Narrative Narrative: Patient is a 28-year-old female with past medical history of hypothyroidism. She recently underwent a laparoscopic cholecystectomy. She states that in the last 1 to 2 days she has noticed a pain along the left buttocks and thigh and states that it feels numb and tingly. She reports that because of her recent surgery she contacted her surgeon who advised her to come to the ER to undergo a venous duplex with potential for DVT. Other than recent surgery patient denies any previous history of DVT or recent travel and she denies any chest pain or shortness of breath associated with her symptoms. She states that she does have a history of sciatica and is unsure if this is the cause of her symptoms or potentially something more invasive such as the blood clot and therefore presents for evaluation [facility] Medical History History of irregular heartbeat Wears glasses Fatty liver Gastric reflux History of IBS Nausea Thyroid disease Anxiety Obesity Gallbladder sludge Cholelithiasis Abdominal pain Abdominal wall strain Strain of right ankle and foot Home Medications ?Medication ?Instructions ?Recorded ?Last Taken ?Type levothyroxine 125 mcg tablet 125 mcg PO DAILY 06/02/24 06/13/24 History (Synthroid) oxycodone 5 mg tablet 5 - 10 mg (1 - 2 x 5 mg) PO Q4H 06/13/24 06/16/24 Rx PRN PRN Pain Score 4-10 5 days #20 tabs Allergy/AdvReac Type Severity Reaction Status Date / Time No Known Allergies Allergy Verified 06/17/24 22:03 Family History Father Diabetes Hypertension High cholesterol Thyroid disorder Grandmother Diabetes High cholesterol Hypertension Thyroid disorder Grandfather Diabetes High cholesterol Hypertension Thyroid disorder Surgical History (Updated 06/17/24 @ 22:25 by Fiorella Jaeger) History of laparoscopic cholecystectomy No history of previous surgery Social History Smoking Status: Former smoker alcohol intake: never substance use type: does not use ROS ROS ED Constitutional Constitutional ED: Denies chills or fever(s) ENT ENT ED: Denies sore throat Cardiovascular Cardiovascular: Denies chest pain Respiratory/Chest Respiratory/Chest: Denies cough or dyspnea Gastrointestinal Gastrointestinal: Denies abdominal pain, diarrhea, nausea or vomiting Genitourinary Genitourinary ED: Denies dysuria Musculoskeletal Musculoskeletal: Reports back pain and other Details: Positive left leg pain Integumentary Denies rash Neurologic Neurologic: Denies headache(s) Hematologic/Lymphatic Hematologic/Lymphatic: Denies easy bleeding or easy bruising EXAM Physical Exam Const Vital Signs: 06/17/24 21:58 06/17/24 23:58 06/18/24 01:00 Temperature 97.4 F L Temperature Source Temporal Pulse Rate 93 85 83 Respiratory Rate 16 18 18 Blood Pressure 169/96 H 127/76 H 146/93 H Blood Pressure Mean 120 93 110 Pulse Ox 99 96 96 Oxygen Delivery Method Room Air Room Air Room Air 06/18/24 01:19 Temperature 98.3 F Temperature Source Pulse Rate 83 Respiratory Rate 18 Blood Pressure 146/93 H Blood Pressure Mean 110 Pulse Ox 96 Oxygen Delivery Method Positive well nourished, well developed and obese General Appearance ED: well developed Nutritional Appearance: obese HEENT HEENT Narrative: Normocephalic atraumatic Eyes PERRL and EOMs intact bilaterally General Eye ED: Negative for scleral icterus Neck supple Resp normal respiratory effort and clear to auscultation bilaterally Cardio regular rate and regular rhythm Back/Spine Back/Spine Narrative: No bony deformity or step-off of the thoracic or lumbar spine no midline tenderness to palpation. There is pain on palpation in the left sacroiliac joint region. There is also pain palpation of the left piriformis muscle belly. No saddle anesthesia. Negative straight leg raise. No clonus or Babinski. Patellar reflexes are plus 1 out of 4 bilaterally. Extremity Extremity Narrative: There is trace asymmetric swelling of the left leg compared to right but negative Homans' sign bilateraly. No overlying erythema or warmth no obvious findings to suggest cellulitis or abscess Neuro oriented x3, CN's II-XII intact bilaterally and no sensory deficits noted Sensorium / Orientation: alert Motor Exam: strength 5/5 throughout Psych mental status grossly normal Skin no rashes or lesions noted MDM MDM MDM Narrative Medical decision making narrative: Patient arrived to the ER hypertensive but otherwise with stable vital. She reported pain and numbness along the posterior and lateral aspect of her left leg. Physical exam only showed trace asymmetric edema negative Homans' sign. Clinically there are no signs of cellulitis or abscess and I have low concern for DVT based on her history and exam. However because of her recent surgery report of leg pain this is a possibility so a venous duplex was ordered. As she does not have signs of infection such as cellulitis or abscess and the surgery was of her gallbladder and not along the spine my concern for infectious process or discitis is low. Therefore only felt the need for a venous duplex. Venous duplex was negative for acute clot which fits her physical exam. At this time I feel that her symptoms are related to musculoskeletal changes and irritation to the sacroiliac joint as well as the piriformis muscle. Patient was advised to continue stretching and heating these areas as well as continue her home pain medication that was prescribed from the cholecystectomy. However at this time without signs of infection and DVT being ruled out there is no need for further evaluation and she is otherwise safe for discharge History & Record Review Discussion w/independent historian: Patient Lab Data Labs: Laboratory Results - last 24 hr 06/17/24 22:01 POC Glucose 102 Discharge Plan Triage Chief Complaint: Lower Extremity Injury ED Provider: Yariel Sy Dx/Rx/DC Orders Clinical Impression: Left leg pain, Sciatica, Morbid obesity Instructions: Understanding Sacroiliac Strain, ED Sciatica Prescriptions: No Action levothyroxine [Synthroid] 125 mcg tablet 125 mcg PO DAILY oxycodone 5 mg Tablet 5 - 10 mg PO Q4H PRN PRN (Reason: Pain Score 4-10) 5 Days Qty: 20 0RF Primary Care Provider: So Camara Referrals: So Camara MD [Primary Care Provider] - Print Language: Luxembourgish Disposition Disposition: Home, Self Care Discharge Date/Time: 06/18/24 01:21
[2024-06-17 23:58] VITALS: BP 127/76; PULSE 85; RESP 18; O2SAT 96
[2024-06-18 01:00] VITALS: BP 146/93; PULSE 83; RESP 18; O2SAT 96
[2024-06-18 01:19] VITALS: BP 146/93; PULSE 83; RESP 18; TEMP 36.8; O2SAT 96
== END 2024-06-18 01:21 | disposition home or self-care (01) ==
PROVIDERS: Emergency Provider Emergency Medicine; PCP Family Medicine; Visit Provider Emergency Medicine
DX: M79.605 Pain in left leg (principal); E66.01 Morbid (severe) obesity due to excess calories; E07.9 Disorder of thyroid, unspecified; Z87.891 Personal history of nicotine dependence; Z79.899 Other long term (current) drug therapy
CPT/HCPCS: 82962; 93971; 99282

== ENCOUNTER → 2025-03-24 | Outpatient (CLI) | payer OTHER, SELFPAY ==
[2025-03-24 16:10] LABS: ALB/GLOB Ratio 1.2 RATIO (0.9-2.4); AST(SGOT) 25 U/L (<=31); Alanine Aminotransfer ALT/SGPT 37 U/L (<=34); Albumin, Serum 4.3 g/dL (3.5-5.0); Alkaline Phosphatase 50 U/L (35-104); Anion Gap 13 (5-15); BUN 12 mg/dL (4-19); BUN/Creat Ratio 15.4 RATIO (10-20); Calcium,Total 9.9 mg/dL (7.6-11.0); Carbon Dioxide 25.2 mmol/L (21.0-32.0); Chloride 103 mmol/L (98-108); Cholesterol 180 mg/dL (<=200); Creatinine, Serum 0.79 mg/dL (0.70-1.20); EST Glomerular Filtration Rate 102 (>60); Free T3 2.9 pg/mL (2.18-3.98); Globulin 3.6 g/dL (2.2-4.2); Glucose 98 mg/dL (70-99); High Density Lipoprotein 52 mg/dL; Low Density Lipoprotein Calc. 101 mg/dL; Potassium 4.2 mmol/L (3.3-5.1); Protein, Total 7.9 g/dL (5.9-8.4); Sodium Level 140 mmol/L (133-145); Triglycerides 138 mg/dL; Very Low Density Lipoprotein 28 mg/dL (5-40)
== END | disposition home or self-care (01) ==
LOC: MFPLAB 12:28
PROVIDERS: PCP Family Medicine; Referring Provider Family Medicine; Visit Provider Family Medicine
DX: E03.9 Hypothyroidism, unspecified (principal); E66.01 Morbid (severe) obesity due to excess calories
CPT/HCPCS: 36415; 80053; 80061; 84439; 84443; 84481

== ENCOUNTER 2025-09-26 10:44 | Emergency (ER) | payer SELFPAY ==
[2025-09-26 10:45] VITALS: BP 123/76; PULSE 91; RESP 20; TEMP 36.5; O2SAT 98; BMI 61.0
[2025-09-26 11:15] VITALS: BP 131/84; BP 133/80; BP 136/99; PULSE 90; PULSE 92; PULSE 94
--- NOTE | 2025-09-26 11:15 | EKG12_ITS ---
Test Reason : SYNCOPE Blood Pressure : */* mmHG Vent. Rate : 87 BPM Atrial Rate : 87 BPM P-R Int : 162 ms QRS Dur : 88 ms QT Int : 372 ms P-R-T Axes : 62 -1 58 degrees QTcB Int : 447 ms Normal sinus rhythm Inferior infarct (cited on or before 13-Jun-2024) Abnormal ECG Confirmed by Ishmael Cunningham ([id number]), avid editor OCTAVIA CLINTON ([id number]) on 09/29/2025 8:18:52 AM Referred By: Confirmed By: Ishmael Cunningham
--- NOTE | 2025-09-26 11:19 | EDS_ITS ---
HPI History of Present Illness Chief Complaint: Syncope Narrative Narrative: Chief complaint and HPI: 30-year-old female with past medical history of thyroid disease and previous syncope presents for evaluation of syncopal episode. Patient states she was recently diagnosed with a sinus infection in which she is on Augmentin. She has been on it for approximately 48 hours. Patient states she does not believe she has ever had this in the past. She states overnight she developed nausea and vomiting. Nonbloody. States she had to use the bathroom in which she developed diarrhea. States during the episode on the toilet she became lightheaded and believes that she blacked out for a couple seconds. She did not hit her head. She denies any fever, chills, chest pain, shortness of breath, abdominal pain, dysuria. Does not believe herself to be . Review of systems: See HPI Medications: As listed on the chart Allergies: As listed on the chart PFSH: Per chart Vital signs: As listed on the chart. Reviewed. Physical exam: Gen: A&O x3, NAD Head: Normocephalic, atraumatic Eyes: No sclera icterus, conjunctiva clear, PERRL ENT: TMs clear BL, moist mucous membranes, posterior oropharynx unremarkable, uvula midline, tonsils not enlarged, no sinus tenderness Neck: Trachea midline, Full ROM, No meningismus CV: RRR, no murmurs, no peripheral edema Resp: Lungs CTA BL, no w/r/c GI: Abd soft, non-distended, non-tender, no r/r/g Musc: Full ROM, no deformity Skin: Warm, dry, no rash Neuro: Alert, oriented, grossly intact, sensation intact Psych: Cooperative, appropriate mood and affect [facility] Medical History History of irregular heartbeat Wears glasses Fatty liver Gastric reflux History of IBS Nausea Thyroid disease Anxiety Obesity Gallbladder sludge Cholelithiasis Abdominal pain Abdominal wall strain Strain of right ankle and foot Home Medications ?Medication ?Instructions ?Recorded ?Last Taken ?Type levothyroxine 125 mcg tablet 125 mcg PO DAILY 06/02/24 06/13/24 History (Synthroid) doxycycline monohydrate 100 mg 100 mg PO BID 7 days #1 4 CAPSULES 09/26/25 Unknown Rx capsule ondansetron 4 mg disintegrating 4 mg PO Q8H PRN PRN Na usea #10 tabs 09/26/25 Unknown Rx tablet Allergy/AdvReac Type Severity Reaction Status Date / Time No Known Allergies Allergy Verified 09/26/25 10:45 Family History Father Diabetes Hypertension High cholesterol Thyroid disorder Grandmother Diabetes High cholesterol Hypertension Thyroid disorder Grandfather Diabetes High cholesterol Hypertension Thyroid disorder Surgical History (Updated 06/30/24 @ 13:04 by Cleo Max) History of laparoscopic cholecystectomy No history of previous surgery Social History Smoking Status: Former smoker alcohol intake: never substance use type: does not use EXAM Physical Exam Const Vital Signs: 09/26/25 10:45 09/26/25 10:50 09/26/25 11:15 Temperature 97.7 F L Temperature Source Oral Pulse Rate 91 Pulse Rate [Lying] 92 Pulse Rate [Sitting (for 1 minute prior to obtaining)] 94 Pulse Rate [Standing (for 1 minute prior to obtaining)] 90 Respiratory Rate 20 H Respiratory Pattern Normal Blood Pressure 123/76 H Blood Pressure [Lying] 133/80 H Blood Pressure [Sitting (for 1 minute prior to obtaining)] 136/99 H Blood Pressure [Standing (for 1 minute prior to obtaining)] 131/84 H Blood Pressure Mean 91 Blood Pressure Mean [Lying] 97 Blood Pressure Mean [Sitting (for 1 minute prior to obtaining)] 111 Blood Pressure Mean [Standing (for 1 minute prior to obtaining)] 99 Pulse Ox 98 Oxygen Delivery Method Room Air 09/26/25 11:44 09/26/25 12:00 09/26/25 13:00 Temperature 98.7 F 98.1 F 98.3 F Temperature Source Oral Oral Oral Pulse Rate 88 90 91 Pulse Rate [Lying] Pulse Rate [Sitting (for 1 minute prior to obtaining)] Pulse Rate [Standing (for 1 minute prior to obtaining)] Respiratory Rate 23 H 22 H 20 H Respiratory Pattern Blood Pressure 131/84 H 110/81 H 107/80 Blood Pressure [Lying] Blood Pressure [Sitting (for 1 minute prior to obtaining)] Blood Pressure [Standing (for 1 minute prior to obtaining)] Blood Pressure Mean 99 90 89 Blood Pressure Mean [Lying] Blood Pressure Mean [Sitting (for 1 minute prior to obtaining)] Blood Pressure Mean [Standing (for 1 minute prior to obtaining)] Pulse Ox 97 97 98 Oxygen Delivery Method Room Air Room Air Room Air 09/26/25 13:11 Temperature 98.3 F Temperature Source Pulse Rate 93 Pulse Rate [Lying] Pulse Rate [Sitting (for 1 minute prior to obtaining)] Pulse Rate [Standing (for 1 minute prior to obtaining)] Respiratory Rate 19 H Respiratory Pattern Blood Pressure 107/80 Blood Pressure [Lying] Blood Pressure [Sitting (for 1 minute prior to obtaining)] Blood Pressure [Standing (for 1 minute prior to obtaining)] Blood Pressure Mean 89 Blood Pressure Mean [Lying] Blood Pressure Mean [Sitting (for 1 minute prior to obtaining)] Blood Pressure Mean [Standing (for 1 minute prior to obtaining)] Pulse Ox 98 Oxygen Delivery Method MDM MDM MDM Narrative Medical decision making narrative: 30-year-old female with past medical history of thyroid disease and previous syncope presents for evaluation of syncopal episode. Patient states she was recently diagnosed with a sinus infection in which she is on Augmentin. She has been on it for approximately 48 hours. Patient states she does not believe she has ever had this in the past. She states overnight she developed nausea and vomiting. Nonbloody. States she had to use the bathroom in which she developed diarrhea. States during the episode on the toilet she became lightheaded and believes that she blacked out for a couple seconds. She did not hit her head. Suspect her syncope was secondary to vasovagal response. Differential diagnosis also include orthostatic hypotension, electrolyte abnormality, dehydration, UTI, , viral illness, medication side effect. NS bolus and Zofran ordered. CBC with mild leukocytosis of 13.2. No anemia. Platelets mildly elevated at 513. CMP unremarkable. Lipase unremarkable. UA negative for UTI. Urine negative. Orthostatic vital signs were negative. On reevaluation, patient's vitals are stable. I suspect her syncope was secondary to vasovagal response. Educated on her drinking plenty of fluids. Will prescribe Zofran as needed for nausea and vomiting. Will switch her for doxycycline for sinus infection in case this was the reason of her nausea and vomiting to Augmentin. She confirmed understanding. Follow-up with primary care physician. Return back to ED symptoms change or worsen. EKG: Interpreted by me/EM physician: EKG shows normal sinus rhythm without any acute ischemic changes. Heart rate 87. No QTc prolongation Diagnostic: Interpreted by me/EM physician: Chest x-ray not pneumonia, effusion, cardiomegaly, pneumothorax. Radiology in agreement. Impression: 1. Vasovagal syncope 2. Nausea vomiting 3. Diarrhea Lab Data Labs: Laboratory Results - last 24 hr 09/26/25 09/26/25 11:11 12:15 WBC 13.2 H RBC 5.00 Hgb 14.5 Hct 43.1 MCV 86.2 MCH 29.0 MCHC 33.6 RDW Std Deviation 44.3 H RDW Coeff of [place] 14.0 Plt Count 513 H MPV 8.6 Immature Gran % (Auto) 0.400 Neut % (Auto) 90.3 H Lymph % (Auto) 4.4 L [place] % (Auto) 3.3 Eos % (Auto) 1.1 Baso % (Auto) 0.5 Absolute Neuts (auto) 11.9 H Absolute Lymphs (auto) 0.58 L Nucleated RBC % 0 Sodium 138 Potassium 4.6 Chloride 102 Carbon Dioxide 24.8 Anion Gap 11 BUN 17 Creatinine 0.79 Estim Creat Clear Calc 168.14 Est GFR (MDRD) Non-Af 102 BUN/Creatinine Ratio 21.7 H Glucose 125 H Calcium 9.2 Total Bilirubin 0.65 AST 18 ALT 26 Alkaline Phosphatase 43 Total Protein 7.8 Albumin 4.3 Globulin 3.5 Albumin/Globulin Ratio 1.2 Lipase 23 Urine Color Yellow Urine Clarity Sl. Cloudy Urine pH 7.0 Ur Specific [place] 1.010 Urine Protein 15 H Urine Glucose (UA) Normal Urine Ketones Negative Urine Occult Blood 25 H Urine Nitrite Negative Urine Bilirubin Negative Urine Urobilinogen Normal Ur Leukocyte Esterase Negative Urine RBC 5-10 SEEN Urine WBC 0-5 SEEN Ur Squamous Epith Cells 5-10 SEEN Urine Bacteria 0 SEEN Urine Mucus 0 SEEN Urine Test Negative Radiography Diagnostic Testing: Clinical Impression(s) from Imaging Studies Chest X-Ray 09/26/25 11:55 IMPRESSION: No radiographic evidence of acute cardiopulmonary pathology. Reading Location: [facility] Discharge Plan Triage Chief Complaint: Syncope ED Provider: Samir Laws Dx/Rx/DC Orders Clinical Impression: Syncope, vasovagal Instructions: Understanding Vasovagal Syncope Prescriptions: New ondansetron 4 mg tablet,disintegrating 4 mg PO Q8H PRN PRN (Reason: Nausea) Qty: 10 0RF doxycycline monohydrate 100 mg capsule 100 mg PO BID 7 Days Qty: 14 0RF Discontinued amoxicillin-pot clavulanate 875-125 mg tablet 1 tab PO Q12.TCU No Action levothyroxine [Synthroid] 125 mcg tablet 125 mcg PO DAILY Primary Care Provider: Tod Dubose Referrals: Tod Dubose MD [Primary Care Provider, Family Practice] - 3-5 Days Activity Restrictions/Additional Instructions: Zofran as needed for nausea and vomiting. Drink plenty of fluids. Return back to ED if symptoms change or worsen. Will switch you from Augmentin to doxycycline for your sinus infection as this may be a cause of your nausea and vomiting. Follow-up with your primary care physician. Print Language: Vietnamese Disposition Disposition: Home, Self Care
[2025-09-26] MEDS: 0.9% Normal Saline (1000mL) 1,000 ML 1000 ML IV (11:24)
[2025-09-26 11:27] LABS: Hematocrit 43.1 % (37-47); Hemoglobin 14.5 g/dL (12.0-15.0); Immature Granulocytes Count 0.050 X10^3/uL (0.0-0.0); Mean Corp Hgb Conc 33.6 g/dL (32-36); Mean Corpuscular Volume 86.2 fL (81-99); Mean Platelet Vol. 8.6 fl (6.2-12.0); NRBC Flagged by Analyzer 0 % (0-5); POSITIVE DIFFERENTIAL YES; Platelet Count 513 K/mm3 (150-450); RBC Distribution Width CV 14.0 % (11.6-14.6); RBC Distribution Width SD 44.3 fl (35.1-43.9); Red Blood Count 5.00 M/mm3 (4.2-5.4); White Blood Count 13.2 K/mm3 (4.4-11.0)
[2025-09-26 11:44] VITALS: BP 131/84; PULSE 88; RESP 23; TEMP 37.1; O2SAT 97
--- NOTE | 2025-09-26 11:55 | RAD_ITS ---
PROCEDURE: CHEST 1 VIEW (PORTABLE) 09/26/2025 REASON FOR EXAM: Syncope TECHNIQUE: Frontal view of the chest. COMPARISON: Chest radiograph 11/08/2020 FINDINGS: Decreased lung volume bilaterally likely secondary to patient body habitus. No focal lung consolidation, pneumothorax, or pleural effusion. The cardiomediastinal silhouette is within normal limits. The lalo are within normal limits. The osseous structures are unremarkable. RAD/Chest 1 View (Portable) IMPRESSION: No radiographic evidence of acute cardiopulmonary pathology. Reading Location: [id number]
[2025-09-26 11:57] LABS: AST(SGOT) 18 U/L (<=31); Alanine Aminotransfer ALT/SGPT 26 U/L (<=34); Albumin, Serum 4.3 g/dL (3.5-5.0); Alkaline Phosphatase 43 U/L (35-104); Anion Gap 11 (7-18); BUN 17 mg/dL (4-19); BUN/Creat Ratio 21.7 RATIO (10-20); Calcium,Total 9.2 mg/dL (7.6-11.0); Carbon Dioxide 24.8 mmol/L (20.0-29.0); Chloride 102 mmol/L (96-106); Estimated Creatinine Clearance 168.14 ml/min (50-250); Globulin 3.5 g/dL (2.2-4.2); Glucose 125 mg/dL (70-99); Lipase 23 U/L (13-75); Potassium 4.6 mmol/L (3.5-5.1)
[2025-09-26 12:00] VITALS: BP 110/81; PULSE 90; RESP 22; TEMP 36.7; O2SAT 97
[2025-09-26 12:21] LABS: Mucous, Urine 0 SEEN /hpf (<or=2+)
[2025-09-26 12:23] LABS: Color, Urine Yellow (Yellow); Glucose, Dipstick Normal (Normal); Ketone-Dipstick Negative (Negative); Leukocyte Esterase-Dipstick Negative /ul (Negative); Nitrite-Dipstick Negative (Negative); Occult Blood-Urine 25 /ul (Negative); Protein-Dipstick 15 mg/dl (Negative); Specific Gravity, Urine 1.010 (1.002-1.030); Urine Bilirubin Dipstick Negative (Negative)
[2025-09-26 12:33] LABS: Internal QC Validated? YES +Cl - CLEAR BKGD; Pregnancy, Urine Negative Negative; Red Blood Cells-Urine 5-10 SEEN /hpf (0-5); Squamous Epithelial Cells - UA 5-10 SEEN /hpf (5-10)
[2025-09-26 13:00] VITALS: BP 107/80; PULSE 91; RESP 20; TEMP 36.8; O2SAT 98
[2025-09-26 13:11] VITALS: BP 107/80; PULSE 93; RESP 19; TEMP 36.8; O2SAT 98
== END 2025-09-26 13:21 | disposition home or self-care (01) ==
PROVIDERS: Emergency Provider Surgery; PCP Family Medicine; Visit Provider Surgery
DX: R55 Syncope and collapse (principal); E07.9 Disorder of thyroid, unspecified; F41.9 Anxiety disorder, unspecified; K21.9 Gastro-esophageal reflux disease without esophagitis; Z79.899 Other long term (current) drug therapy
CPT/HCPCS: 71045; 80053; 81001; 81025; 83690; 85025; 87631; 93005; 99285; A4216